=== PATIENT | female | born 1975 ===

== ENCOUNTER 2020-03-27 14:51 | Outpatient (CLI) | payer OTHER ==
[~2020-03-27] VITALS: Ht 157.5 cm; Wt 57.6 kg
== END 2020-03-27 15:26 | disposition home or self-care (01) ==
LOC: OFIC 805 14:51
PROVIDERS: ATTEND Otolaryngology
DX: H92.02 Otalgia, left ear (principal); H61.23 Impacted cerumen, bilateral

== ENCOUNTER 2020-07-25 14:18 | Inpatient (IN) | payer OTHER | END 2020-08-08 17:54 | disposition home or self-care (01) | DRG 357 | LOC: SEC-K 14:18 → SURH 14:18 | PROVIDERS: Surgery; ADMIT Internal Medicine; ATTEND Internal Medicine | PROC: BW21ZZZ Computerized Tomography (CT Scan) of Abdomen and Pelvis (ICD-10-PCS; 2020-07-25) | PROC: 02H633Z Insertion of Infusion Device into Right Atrium, Percutaneous Approach (ICD-10-PCS; 2020-07-26) | PROC: 3E0F7GC Introduction of Other Therapeutic Substance into Respiratory Tract, Via Natural or Artificial Opening (ICD-10-PCS; 2020-07-26) | PROC: 3E0436Z Introduction of Nutritional Substance into Central Vein, Percutaneous Approach (ICD-10-PCS; 2020-07-26) | PROC: BW3GZZZ Magnetic Resonance Imaging (MRI) of Pelvic Region (ICD-10-PCS; 2020-07-27) | PROC: 0T9030Z Drainage of Right Kidney with Drainage Device, Percutaneous Approach (ICD-10-PCS; 2020-07-30) | PROC: 0T9130Z Drainage of Left Kidney with Drainage Device, Percutaneous Approach (ICD-10-PCS; 2020-07-30) | PROC: B44HZZZ Ultrasonography of Bilateral Lower Extremity Arteries (ICD-10-PCS; 2020-07-30) | PROC: B54DZZZ Ultrasonography of Bilateral Lower Extremity Veins (ICD-10-PCS; 2020-07-30) | PROC: 30233N1 Transfusion of Nonautologous Red Blood Cells into Peripheral Vein, Percutaneous Approach (ICD-10-PCS; 2020-07-30) | PROC: 0WJG0ZZ Inspection of Peritoneal Cavity, Open Approach (ICD-10-PCS; principal; 2020-08-02 07:00) | DX: C78.6 Secondary malignant neoplasm of retroperitoneum and peritoneum (principal); N17.9 Acute kidney failure, unspecified; C78.7 Secondary malignant neoplasm of liver and intrahepatic bile duct; C56.9 Malignant neoplasm of unspecified ovary; C18.9 Malignant neoplasm of colon, unspecified; N13.1 Hydronephrosis with ureteral stricture, not elsewhere classified; I10 Essential (primary) hypertension; I80.01 Phlebitis and thrombophlebitis of superficial vessels of right lower extremity; H92.02 Otalgia, left ear; H61.23 Impacted cerumen, bilateral; D64.9 Anemia, unspecified; E67.8 Other specified hyperalimentation | CPT/HCPCS: 72198 ==